=== PATIENT | female | born 1955 | race Asian ===

== ENCOUNTER 2017-05-30 06:25 | Day surgery (SDC) | payer OTHER ==
[~2017-05-30] VITALS: Ht 157.5 cm; Wt 60.7 kg
[~2017-05-30 06:25] MED LIST: ATOR10; BISA5EC PO; CEPH500 PO; FISH OIL 1,0001 EAC1; Flector1 EACH; HYDCOR2.5C PR; LISI20 PO; Lovastatin20 MG PO; METF500; Miralax17 GM PO
== END 2017-05-30 11:56 | disposition home or self-care (01) ==
LOC: ORSCSDS 06:25
PROVIDERS: Otolaryngology
PROC: 0GBM0ZZ Excision of Left Superior Parathyroid Gland, Open Approach (ICD-10-PCS; principal; 2017-05-30 08:00)
DX: E21.0 Primary hyperparathyroidism (principal); D34 Benign neoplasm of thyroid gland; E11.9 Type 2 diabetes mellitus without complications; I10 Essential (primary) hypertension; E78.5 Hyperlipidemia, unspecified; Z79.84 Long term (current) use of oral hypoglycemic drugs; Z79.899 Other long term (current) drug therapy
CPT/HCPCS: 82947; 83970; 88305; 88331; J0171; J1100; J1170; J2405; J3010; J7120

== ENCOUNTER 2021-06-09 05:06 | Emergency (ER) | payer MEDICARE, BC ==
[~2021-06-09] VITALS: Ht 167.6 cm; Wt 59.0 kg
[2021-06-09 05:57] LABS: BASOPHILS ABSOLUTE AUTO 0.03 K/mm3 (0.00-0.23); BASOPHILS PERCENT AUTO 0 % (0-2); EOSINOPHILS ABSOLUTE AUTO 0.02 K/mm3 (0.00-0.68); EOSINOPHILS PERCENT AUTO 0 % (0-6); Hematocrit 42.4 % (33.0-51.0); IMMATURE GRAN ABSOLUTE AUTO 0.08 K/mm3 (0.00-0.10); IMMATURE GRAN PERCENT AUTO 1 % (0-1); LYMPHOCYTES ABSOLUTE AUTO 1.94 K/mm3 (0.84-5.20); LYMPHOCYTES PERCENT AUTO 19 % (21-46); MONOCYTES PERCENT AUTO 8 % (4-13); Mean Corpuscular HGB 29.4 pg (26.0-34.0); Mean Corpuscular Volume 89 fL (80-100); Mean Platelet Volume 9.7 fL (9.1-12.4); NEUTROPHILS ABSOLUTE AUTO 7.59 K/mm3 (1.96-9.15); NEUTROPHILS PERCENT AUTO 73 % (41-73); Platelet Count 176 K/mm3 (150-400); RDW Coefficient Variation 12.2 % (11.7-14.2); RDW Standard Deviation 40.1 fL (35.1-46.3); Red Blood Cell Count 4.76 M/mm3 (3.80-5.20); White Blood Cell Count 10.46 K/mm3 (4.00-11.30)
[2021-06-09 06:20] LABS: Alanine Aminotransfer (ALT/SGP 41 U/L (12-78); Albumin, Blood 4.2 g/dL (3.4-5.0); Albumin/Globulin Ratio 1.1 (0.8-1.8); Alk Phos 71 U/L (50-136); Anion Gap 7 mmol/L (6-16); Aspartate Aminotrans (AST/SGOT 26 U/L (12-37); Bilirubin, Total 1.3 mg/dL (0.1-1.0); Blood Urea Nitrogen 18 mg/dL (8-24); Bun/Creatinine Ratio 22.8 (12.0-20.0); CO2, Blood 22 mmol/L (21-32); Calcium, Blood 9.3 mg/dL (8.5-10.1); Chloride, Blood 111 mmol/L (98-108); Creatinine, Blood 0.79 mg/dL (0.40-1.00); Globulin, Blood 3.9 g/dL (2.2-4.0); Glomerular Filtration Rate >60 (60-); Glucose, Blood 200 mg/dL (70-99); Potassium, Blood 3.6 mmol/L (3.5-5.5); Sodium, Blood 140 mmol/L (136-145); Total Protein, Blood 8.1 g/dL (6.4-8.2)
[2021-06-09 08:03] LABS: Influenza A, PCR NEGATIVE (NEGATIVE); Influenza B, PCR NEGATIVE (NEGATIVE); Resp Syncytial Virus, PCR NEGATIVE (NEGATIVE); SARS-Cov-2 (COVID-19) PCR, MMC NEGATIVE (NEGATIVE)
[2021-06-09 08:09] LABS: International Normalized Ratio 1.09; Prothrombin Time Results 11.4 Sec (9.7-11.5)
== END 2021-06-09 08:05 | disposition home or self-care (01) ==
LOC: ER 05:06
PROVIDERS: Emergency Medicine
DX: I60.7 Nontraumatic subarachnoid hemorrhage from unspecified intracranial artery (principal); I10 Essential (primary) hypertension; Z79.899 Other long term (current) drug therapy
CPT/HCPCS: 0241U; 36415; 70450; 70496; 80053; 83690; 85025; 85610; 85730; 93005; 93010; 96365; 96375; 99285-25; J0360; J1953; J2405; J7050; Q9967

== ENCOUNTER → 2022-08-06 | Outpatient (CLI) | payer MEDICARE, BC | END | disposition home or self-care (01) | LOC: LAB SHORT 08:20 → LAB 08:20 | DX: R31.0 Gross hematuria (principal); R82.81 Pyuria | CPT/HCPCS: 87077; 87086; 87186 ==

== ENCOUNTER → 2023-04-06 | Outpatient (CLI) | payer MEDICARE, BC ==
[2023-04-06 14:27] LABS: Creatinine, Urine Random 53.4 mg/dL (27.00-270.00)
[2023-04-06 14:40] LABS: Microalb/Creat Ratio UR, Rand 50.936 mg/g (0.000-30.000); Microalbumin, Random Urine 27.2 mg/L (0.000-20.000)
== END ==
LOC: LAB SHORT 08:20 → LAB 08:20
PROVIDERS: Physician Assistant
DX: I10 Essential (primary) hypertension (principal); E11.59 Type 2 diabetes mellitus with other circulatory complications; E11.69 Type 2 diabetes mellitus with other specified complication
CPT/HCPCS: 82043; 82570

== ENCOUNTER → 2024-06-11 | Outpatient (CLI) | payer MEDICARE, BC ==
[2024-06-11 19:03] LABS: Microalb/Creat Ratio UR, Rand 150.98 mg/g (0.000-30.000)
== END | disposition home or self-care (01) ==
LOC: LAB SHORT 15:19 → LAB 15:19
PROVIDERS: Physician Assistant
DX: E11.59 Type 2 diabetes mellitus with other circulatory complications (principal); E11.69 Type 2 diabetes mellitus with other specified complication; R82.90 Unspecified abnormal findings in urine
CPT/HCPCS: 82043; 82570; 87077; 87086; 87186